=== PATIENT | male | born 1960 | race American Indian/Alaskan Native ===

== ENCOUNTER 2017-12-18 12:38 | Day surgery (SDC) | payer OTHER ==
[2017-12-18] MEDS ORDERED: Midazolam 2 MG/2 ML VIAL ONE (13:02)
[2017-12-18 13:33] LABS: ARTERIAL BLOOD GAS HCO3 32.1 mmol/L (21-28); ARTERIAL BLOOD GAS HEMOGLOBIN 9.3 g/dL (11.7-17.4); ARTERIAL BLOOD GAS O2 SAT 99.1 % (95-98); ARTERIAL BLOOD GAS PCO2 48 mm/Hg (35-45); ARTERIAL BLOOD GAS PH 7.46 (7.35-7.45); ARTERIAL BLOOD GAS PO2 178 mm/Hg (80-100); ARTERIAL BLOOD GAS TCO2 35.6 mmol/L (22-28)
[2017-12-18] MEDS ORDERED: EPINEPHrine 1 mg/ml (1:1000) Inj ONE (13:33)
[2017-12-18 13:39] LABS: VENOUS BLOOD GAS PCO2 58 mmHg (40-60); VENOUS BLOOD GAS PO2 38 mm/Hg (30-55)
--- NOTE | 2017-12-19 01:34 | CARDCATH ---
PROCEDURE DATE: 12/18/2017. INDICATIONS: Mr. Gomez is a 57-year-old gentleman who was admitted to [facility] with testicular pain subsequently developed respiratory failure, PEA, cardiac arrest, and was initiated on dobutamine attempting at weaning the dobutamine made him go into complete heart failure/pulmonary edema. The patient was subsequently transferred for evaluation of congestive heart failure with an ejection fraction of 10% and cardiogenic shock. PROCEDURE PERFORMED: Complete heart catheterization with selective left and right coronary angiogram, left ventriculogram, right heart catheter, hemodynamics and saturations. FINDINGS: Findings of the right heart cath are a mean pressures with 13 mmHg, RV 34/8 with a mean of 14 mmHg, PA pressure is 32/70 with a mean of 23. Primary capillary wedge 16 with a mean of 13. Left ventricular ejection fraction 10% using the Salazar equation cardiac output was calculated to be 3.5 L/cm2 and cardiac index was 1.9. These measurements were done on 40% oxygen saturation with milrinone at 0.375 mcg/minute. CORONARY ANATOMY: Left main is a large-sized vessel that bifurcates into LAD and circumflex. LAD is a large-sized vessel, gives off two small diagonal branch, left circumflex runs in AV groove gives off median size obtuse marginal branch. Right coronary artery large-sized vessel has approximately 55% stenosis, right dominant circulation. IMPRESSION: Nonobstructive coronary artery disease, nonischemic dilated cardiomyopathy, mildly elevated filling pressures low normal cardiac output. RECOMMENDATIONS: Continue treatment of underlying congestive heart failure. Continue inotropic support, diuretic with RAAS modulators. Awais Barrera MD
[2017-12-19 12:10] VITALS: RESP 16; O2SAT 100
== END 2017-12-18 14:30 | disposition short-term general hospital (02) ==
LOC: C.CATHLAB 12:38
PROVIDERS: ATTEND Internal Medicine Interventional Cardiology
DX: I25.10 Atherosclerotic heart disease of native coronary artery without angina pectoris (principal); I50.9 Heart failure, unspecified
CPT/HCPCS: 82803; 93453; 99152; 99153; C1714; C1760; C1769; C1887; C1893; C1894; J0171; J1644; J2250; J3010; Q9967